=== PATIENT | male | born 1950 | race Hispanic/Latino ===

== ENCOUNTER 2017-09-17 07:31 | Observation (INO) | payer OTHER, MEDICARE ==
[2017-09-15 09:48] VITALS: BP 108/65
[2017-09-15 09:49] LABS: BASOPHILS % (AUTO) 0.7 % (0.0-5.0); EOSINOPHILS % (AUTO) 8.3 % (0.0-8.0); HEMATOCRIT 39.3 % (42-54); LYMPHOCYTES % (AUTO) 15.2 % (21.0-51.0); MEAN CORPUSCULAR HEMOGLOBIN 31.2 pg (27.0-33.0); MEAN CORPUSCULAR HGB CONC 34.5 g/dL (32.0-36.0); MEAN CORPUSCULAR VOLUME 90.7 fL (79-99); NEUTROPHILS % (AUTO) 62.8 % (40.0-77.0); PLATELET COUNT (AUTO) 211 K/uL (130-400); RED BLOOD CELL COUNT(AUTO) 4.33 MIL/uL (4.50-6.20); RED CELL DISTRIBUTION WIDTH 14.7 % (11.0-15.5)
[2017-09-15 09:56] LABS: CREATININE 1.2 mg/dL (0.5-1.5); POTASSIUM 3.2 mmol/L (3.5-5.1)
[2017-09-15 09:58] LABS: INR 0.94 (0.85-1.15); PARTIAL THROMBOPLASTIN TIME 25.2 SEC (26.3-35.5); PROTHROMBIN TIME 9.9 SEC (9.6-11.6)
[~2017-09-17] VITALS: Ht 167.6 cm; Wt 61.5 kg
[2017-09-17] VITALS (11 sets, daily range): BP systolic 78–101; BP diastolic 40–70
[~2017-09-17 07:31] MED LIST: ASPI-1181 PO; ATOR40TA71 PO; CLINDAMYCIN 900 MG/D5% WATER 50 ML IV SCH; CLOP75TA32 PO; FURO40TA5 PO; LISI2.5T2 PO; METO25TA6 PO; PHARMACY COMMUNICATION MISC SCH; SODIUM CHLORIDE 0.9% 1000ML 1,000 ML IV SCH; SPIR25TA4 PO; THIA100T8 PO; VANCOMYCIN 1GM+NS 250ML 250 ML IV SCH
[2017-09-17] MEDS ORDERED: MIDAZOLAM HCL 1 MG/ML 2ML VIAL ONE ×3 (10:35→11:34)
[2017-09-17] MEDS ORDERED: BUPIVACAINE/PF 0.25% 30ML VIAL IJ ONE (10:35)
[2017-09-17] MEDS ORDERED: VANCOMYCIN 1GM+NS 250ML 250 ML IV ONE (10:36)
[2017-09-17] MEDS ORDERED: MEPERIDINE-PF 50 MG/ML SYG ONE ×2 (10:36→11:34)
[2017-09-17] MEDS ORDERED: LIDOCAINE HCL 1% MDV 50ML VIAL ONE (10:36)
[2017-09-17] MEDS ORDERED: ACETAMINOPHEN-CODEINE 300/30MG TAB PO PRN ×2 (12:30)
[2017-09-17] MEDS ORDERED: ACETAMINOPHEN 325 MG TAB PO PRN (12:30)
[2017-09-17] MEDS: METOPROLOL TARTRATE 25 MG TAB PO SCH (20:20)
[2017-09-18 03:36] VITALS: BP 88/57
[2017-09-18 04:07] LABS: MEAN CORPUSCULAR HEMOGLOBIN 31.4 pg (27.0-33.0); MEAN CORPUSCULAR HGB CONC 34.8 g/dL (32.0-36.0); MEAN CORPUSCULAR VOLUME 90.4 fL (79-99); PLATELET COUNT (AUTO) 152 K/uL (130-400); RED BLOOD CELL COUNT(AUTO) 3.43 MIL/uL (4.50-6.20); WHITE BLOOD COUNT (AUTO) 7.7 K/uL (4.8-10.8)
[2017-09-18 04:28] LABS: CREATININE 1.1 mg/dL (0.5-1.5); POTASSIUM 3.2 mmol/L (3.5-5.1)
[2017-09-18 07:36] VITALS: BP 97/59
[2017-09-18] MEDS: METOPROLOL TARTRATE 25 MG TAB PO SCH (08:17)
[2017-09-18] MEDS ORDERED: ATORVASTATIN CALCIUM 40 MG TABLET PO SCH (09:00)
[2017-09-18] MEDS ORDERED: CLOPIDOGREL BISULFATE 75 MG TAB PO SCH (09:00)
[2017-09-18] MEDS ORDERED: THIAMINE HCL 100 MG TABLET PO SCH (09:00)
[2017-09-18] MEDS ORDERED: SPIRONOLACTONE 25 MG TAB PO SCH (09:00)
[2017-09-18] MEDS ORDERED: LISINOPRIL 2.5 MG TABLET PO SCH (09:00)
[2017-09-18] MEDS ORDERED: ASPIRIN 81 MG EC TAB PO SCH (09:00)
[2017-09-18] MEDS ORDERED: FUROSEMIDE 40 MG TABLET PO SCH (09:00)
[2017-09-18 11:11] VITALS: BP 124/73
== END 2017-09-18 13:10 | disposition home or self-care (01) ==
LOC: DAH 07:31 → DAHIP 07:32 → 2AH 13:46
PROVIDERS: ADMIT Family Medicine; ATTEND Family Medicine
DX: I25.5 Ischemic cardiomyopathy (principal); I25.2 Old myocardial infarction; I11.0 Hypertensive heart disease with heart failure; I50.22 Chronic systolic (congestive) heart failure; G47.30 Sleep apnea, unspecified; E78.5 Hyperlipidemia, unspecified; J45.909 Unspecified asthma, uncomplicated; I25.10 Atherosclerotic heart disease of native coronary artery without angina pectoris; Z87.891 Personal history of nicotine dependence; Z79.899 Other long term (current) drug therapy; Z95.810 Presence of automatic (implantable) cardiac defibrillator; Z79.82 Long term (current) use of aspirin
CPT/HCPCS: 33249; 36415 ×3; 71045; 80048 ×2; 84132; 85025; 85027; 85610; 85730; C1721; C1895 ×2; G0378 ×30; J2175 ×2; J2250 ×3; J3370 ×2; J3490 ×2; 99152; 99153